=== PATIENT | female | born 1995 | race American Indian/Alaskan Native ===

== ENCOUNTER 2017-06-02 21:55 | Emergency (ER) | payer MEDICAID ==
[2017-06-02 21:56] VITALS: BMI 26.5
--- NOTE | 2017-06-02 23:06 | C.PDOC ---
History Of Present Illness Patient is a 22 y/o female who presents to the ED with a complaint of bilateral lower chest pain for the last few days. Patient notes pain is digitally and positionally reproduceable. Worse with cough. Admits to believing pain to be acid reflux and attempted to take Tums without any relief. Patient has no other physical complaints at this time. Time Seen by Provider: 06/02/17 23:01 Chief Complaint (Nursing): Abdominal Pain History Per: Patient History/Exam Limitations: no limitations Onset/Duration Of Symptoms: Days (few days) Current Symptoms Are (Timing): Still Present Location Of Pain/Discomfort: Other (lower chest ) Past Medical History Reviewed: Historical Data, Nursing Documentation, Vital Signs Vital Signs: Last Vital Signs Temp 98.2 F 06/02/17 23:41 Pulse 71 06/02/17 23:41 Resp 18 06/02/17 23:41 BP 124/71 06/02/17 23:41 Pulse Ox 98 06/03/17 00:42 - Medical History PMH: No Chronic Diseases Surgical History: No Surg Hx - [facility] Procedures INJECT/INFUSE NEC (10/05/14) Family History: States: No Known Family Hx - Social History Hx Tobacco Use: Yes (occasional) Hx Alcohol Use: No Hx Substance Use: No - Immunization History Hx Tetanus Toxoid Vaccination: No Hx Influenza Vaccination: No Hx Pneumococcal Vaccination: No Review Of Systems Constitutional: Negative for: Fever, Chills Cardiovascular: Positive for: Chest Pain (bilateral lower chest) Skin: Negative for: Rash Physical Exam - Physical Exam Appears: Well, Non-toxic, No Acute Distress Skin: Warm, Dry Head: Atraumatic, Normacephalic Oral Mucosa: Moist Chest: Symmetrical, Tenderness (digitally reproduceable pain to bilateral lower section of parasternal area) Cardiovascular: Rhythm Regular, No Murmur Respiratory: Normal Breath Sounds, No Rales, No Rhonchi, No Wheezing Gastrointestinal/Abdominal: Soft, No Tenderness Extremity: Normal ROM (x4) Additional Physical Exam Comments: Physical exam chaperoned by TERESA Robertson. ED Course And Treatment - Laboratory Results Lab Interpretation: Normal (ua neg.) Urine POC: Negative ECG: Interpreted By Me ECG Rhythm: Sinus Rhythm ECG Interpretation: Normal O2 Sat by Pulse Oximetry: 98 Pulse Ox Interpretation: Normal Progress Note: EKG, urine, and UA ordered. Motrin administered. Reevaluation Time: 23:29 Reassessment Condition: Improved Medical Decision Making Medical Decision Making: b/l lower parasternal costochondritis. no s/s of GERD UA/preg neg. Disposition Doctor Will See Patient In The: Office Counseled Patient/Family Regarding: Studies Performed, Diagnosis - Disposition Referrals: [facility] [Outside] Disposition: HOME/ ROUTINE Disposition Time: 23:30 Condition: GOOD Additional Instructions: motrin 400-600 mg every 6 hours as needed for lower chest wall discomforts consistent with costochondritis. Follow-up in our outpatient Clinic as needed. Instructions: Costochondritis Forms: [employer] (Bengali) - Clinical Impression Clinical Impression: Chest wall discomfort - Scribe Statement The provider has reviewed the documentation as recorded by the Scribe Melisa Lee All medical record entries made by the Scribe were at my direction and personally dictated by me. I have reviewed the chart and agree that the record accurately reflects my personal performance of the history, physical exam, medical decision making, and the department course for this patient. I have also personally directed, reviewed, and agree with the discharge instructions and disposition.
[2017-06-02 23:18] LABS: HCG,QUALITATIVE URINE NEGATIVE (NEGATIVE)
[2017-06-02 23:20] LABS: SQUAMOUS EPITHIAL < 1 /hpf (0-5); URINE BACTERIA RARE (<OCC); URINE BILIRUBIN NEGATIVE (NEGATIVE); URINE CLARITY Clear (Clear); URINE COLOR Yellow (YELLOW); URINE GLUCOSE (UA) NORMAL (Normal); URINE NITRATE NEGATIVE (NEGATIVE); URINE PROTEIN NEGATIVE (NEGATIVE); URINE UROBILINOGEN NORMAL mg/dL (0.2-1.0)
[2017-06-02 23:21] LABS: URINE BLOOD NEGATIVE (NEGATIVE); URINE LEUKOCYTE ESTERASE TRACE Leu/uL (Negative)
[2017-06-02 23:44] VITALS: BP 124/71; PULSE 71; RESP 18; TEMP 98.2
[2017-06-03 00:43] VITALS: O2SAT 98
== END 2017-06-02 23:44 | disposition home or self-care (01) ==
LOC: C.ER 21:55
DX: R07.89 Other chest pain (principal)